=== PATIENT | female | born 1940 | race Caucasian/White ===

== ENCOUNTER → 2016-08-09 | Outpatient (CLI) | payer MEDICARE, BC ==
[~2016-08-09] MED LIST: AMIO200T PO; AMIT1TAB79 PO; AMIT25TA9 PO; ATEN1TAB74 PO; BENA25CA4 PO; BENA25TA3 PO; CHOL1CAP34 PO; COUM3TAB PO; DICY10 PO; DILAUDID; DILAUDID IT; EPIN0.3A2 IM; EPIP0.3I IM; ERGO1CAP10 PO; ESTR1.25 PO; ESTR42.5V VAGINAL; FAMO1TAB37 PO; FAMO40TA PO; FURO1TAB60 PO; FURO40TA PO; HYDR-3534 PO; HYDR15SO PO; IRBE150T49 PO; LEVO-154 PO; LEVO.15 PO; LIDO1SOL8 SWISH-SWAL; LOMO2.5T PO; MULT1TAB46 PO; MULT1TAB84 PO; NITR0.4S SL; PRAZ2 PO; PROC10003 SQ; SALM50I INH; TUSSSUS2 PO; TYLE325T PO; VENTAER INH; WARF4TAB52 PO; WELC625T2 PO; ZOFR8TAB PO; [UNRECOGNIZED DRUG - OTHER]
[2016-08-09 17:34] LABS: FREE T4 1.41 NG/DL (0.76-1.46)
== END ==
LOC: PLAB 11:23
PROVIDERS: ATTEND Internal Medicine Endocrinology, Diabetes & Metabolism
DX: E03.9 Hypothyroidism, unspecified (principal)
CPT/HCPCS: 36415; 84439; 84443

== ENCOUNTER → 2016-09-13 | Day surgery (SDC) | payer MEDICARE, BC ==
[~2016-09-13] MED LIST changes: +BUPIVACAINE HCL PF 0.5% 30 ML VIAL ONE; +PROPOFOL 200 MG/20 ML AMP IV ONE; +TRIAMCINOLONE ACETONIDE 40 MG/ML VIAL I-ARTICULR ONE
--- NOTE | 2016-09-17 07:51 | M6 ---
cc: CAESAR ERNANDEZ M.D. DATE: 09/13/2016 DATE OF : 1940 PROCEDURE Fluoroscopically guided injection bilateral cervical facet joints (bilateral C3-4, C4-5 and C5-6 facet joints) History and physical was completed and signed. Consent was signed. Procedure site was marked. Medications were listed and reconciled. Pain score was recorded. Allergies were noted. Time out was taken. Fluoroscopy time was recorded where applicable. Sedation was administered or directed by Dr. Ernandez. The patient was given oxygen. The patient was monitored by a registered nurse. Total procedure time was greater than 15 minutes. PROCEDURE NOTE: IV was started, blood pressure cuff, pulse oximeter and EKG were applied. The patient was placed in the prone position on a Chris table sedated with small amounts of propofol titrated to effect. Vital signs were monitored and remained stable throughout the procedure. The cervical area was prepped with alcohol and draped with sterile drapes. Fluoroscopy was used to visualize the bilateral cervical facet joints at C3-4, C4-5 and C5-6. Separate sterile 3-1/2 inch 25-gauge spinal needles were advanced into these joints under fluoroscopic guidance. There was negative aspiration for blood or any other type of fluid. At each location the patient was given 1 mL of 0.5% Marcaine which contained 10 mg of Kenalog. Following this the patient was taken to the recovery room with stable vital signs neurologically intact. W. MD MARIN Genao/RON /9:46 AM /7:49 AM
== END | disposition home or self-care (01) ==
LOC: PHSDC 07:57
PROVIDERS: ATTEND Pain Medicine Interventional Pain Medicine
DX: M54.2 Cervicalgia (principal); M48.02 Spinal stenosis, cervical region
CPT/HCPCS: 64490; 64491; 64492; 99152; J3301

== ENCOUNTER → 2016-09-22 | Day surgery (SDC) | payer MEDICARE, BC ==
[~2016-09-22] MED LIST changes: -BUPIVACAINE HCL PF 0.5% 30 ML VIAL ONE; +BUPIVACAINE HCL PF 0.75% 30 ML VIAL ONE
--- NOTE | 2016-09-23 14:42 | M6 ---
cc: CAESAR ERNANDEZ M.D. DATE: 09/22/2016. DATE OF : 1940. PROCEDURE PERFORMED: Fluoroscopically-guided injection bilateral thoracic facet joints (bilateral T4, T5 and T6 facet joints). DESCRIPTION OF THE PROCEDURE IN DETAIL: History and physical was completed and signed. Consent was signed. Procedure site was marked. Medications were listed and reconciled. Pain score was recorded. Allergies were noted. Time out was taken. Fluoroscopy time was recorded where applicable. Sedation was administered or directed by Dr. Ernandez. The patient was given oxygen. The patient was monitored by a registered nurse. Total procedure time was greater than 15 minutes. IV was started, blood pressure cuff, pulse oximeter and EKG were applied. The patient was placed in the prone position on a Chris table and sedated with small amounts of propofol titrated to effect. Vital signs were monitored and remained stable throughout the procedure. The thoracic area was prepped with alcohol and draped with sterile drapes. Fluoroscopy was used to visualize the bilateral thoracic facets at T4, T5 and T6. Separate sterile 3-1/2-inch 25-gauge spinal needles were advanced into these joints. There was negative aspiration for blood or any other type of fluid and at each location the patient was given 1 mL of Marcaine 0.75% which contained 10 mg of Kenalog. Following the procedure, the patient was taken to the recovery room with stable vital signs neurologically intact W. MD MARIN Genao/KAM /9:30 AM /2:37 PM
== END | disposition home or self-care (01) ==
LOC: PHSDC 08:28
PROVIDERS: ATTEND Pain Medicine Interventional Pain Medicine
DX: M54.6 Pain in thoracic spine (principal)
CPT/HCPCS: 64490; 64491; 64492; 99152; J3301

== ENCOUNTER 2016-10-01 15:30 | Emergency (ER) | payer MEDICARE, BC ==
[~2016-10-01] VITALS: Ht 160 cm; Wt 67.8 kg
[~2016-10-01 15:30] MED LIST changes: -AMIT25TA9 PO; -ATEN1TAB74 PO; -BENA25CA4 PO; -BUPIVACAINE HCL PF 0.75% 30 ML VIAL ONE; -CHOL1CAP34 PO; -DILAUDID; -DILAUDID IT; -EPIN0.3A2 IM; -FAMO40TA PO; -FURO40TA PO; -HYDR15SO PO; -LEVO-154 PO; -LIDO1SOL8 SWISH-SWAL; -MULT1TAB46 PO; -PROC10003 SQ; -PROPOFOL 200 MG/20 ML AMP IV ONE; -TRIAMCINOLONE ACETONIDE 40 MG/ML VIAL I-ARTICULR ONE; -TYLE325T PO; -WARF4TAB52 PO
[2016-10-01 15:34] VITALS: PULSE 67; RESP 16; TEMP 97.8; O2SAT 97
[2016-10-01] MEDS ORDERED: ALUMINUM/MAGNESIUM/SIMETH 30 ML CUP PO ONE (16:00)
[2016-10-01] MEDS ORDERED: LIDOCAINE VISCOUS 2% SOLN 15 ML UDC SWISH-SPIT ONE (16:00)
[2016-10-01] MEDS ORDERED: AMIT1TAB79 PO (16:05)
[2016-10-01] MEDS ORDERED: DILAUDID (16:05)
[2016-10-01] MEDS ORDERED: PROC10003 SQ (16:05)
[2016-10-01] MEDS ORDERED: DILAUDID IT (16:05)
--- NOTE | 2016-10-01 16:10 | PD ---
HPI Chief Complaint: Abdominal Pain Time Seen by Provider: 15:47 Travel History International Travel<30 days: No Contact w/Intl Traveler<30days: No Traveled to known affect area: No History of Present Illness HPI This 76-year-old female is complaining of abdominal pain. She started having pain yesterday. It stays pain in the mid to upper abdomen. It is worse when she stands or when she walks. When she stands the pain radiates to the back. She generally has a poor appetite. She has a history of ischemic colitis which was operated on by Dr. Wharton in 1999 and a. She has had a cholecystectomy in the past. She has a history of atrial fibrillation and is on Coumadin. She has a history of end-stage renal disease. She has a lot of back issues for which she sees Dr. Ernandez. She has a intrathecal Dilaudid pump. She generally does not have a good appetite. She has not noted that food makes this pain worse. 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 FIB) High Cholesterol: Yes Chemotherapy: No Chest Pain: Yes Congestive Heart Failure: Yes (INDUCED IN ACUTE CARE SETTING) COPD: Yes Cerebrovascular Accident: No Diabetes: No Diminished Hearing: No Deep Vein Thrombosis: Yes (PE) Endocrine: No Gastrointestinal Disorders: Yes (COLECTOMY; ISCHEMIC COLITIS;) GERD: Yes Glaucoma: No Genitourinary: Yes (BLADDER LEAKAGE) Hepatitis: No Hiatal Hernia: Yes Heparin Induced Thrombocytopen: No Hypertension: Yes Immune Disorder: No Implanted Vascular Access Dvce: Yes Medical other: No Musculoskeletal: Yes (OSTENPENIA LEFT HIP ) Neurologic: No Psychiatric: Yes (SITUATIONAL DEPRESSION ) Reproductive: No Respiratory: Yes (COPD, PULMONARY FIBROSIS) Migraines: Yes ("NOT FOR FEW YEARS" (08/06/13)) Myocardial Infarction: No Pneumonia: Yes Radiation Therapy: No Renal Failure: Yes (Chronic renal failure - pt not on dialysis ) Sickle Cell Disease: No Sleep Apnea: No Thyroid Disease: Yes Ulcer: No PNEUMOCCOCAL Vaccine (Year): 2010 ?: Not Menopausal: Yes : 8 Para: 3 Miscarriage: 5 : 0 Past Surgical History Abdominal Surgery: Yes (COLECTOMY; APPY AGE 14 ;DAVINCI ASST. ADENOMA) AICD: No Appendectomy: Yes Arteriovenous Shunt: No Body Medical Devices: BILATERAL RENTAL ARTERY STENTS Cardiac Surgery: No Cholecystectomy: Yes Ear Surgery: No Endocrine Surgery: No Eye Surgery: No Genitourinary Surgery: Yes (BLADDER SUSPENSION, LOLA. RENAL STENTS) Hysterectomy: Yes Insulin Pump: No Joint Replacement: No Neurologic Surgery: No Oral Surgery: Yes (TONSILLECTOMY AGE 3 ) Pacemaker: No Thoracic Surgery: No Tonsillectomy: Yes Other Surgery: Yes (2 VILLAGOMEZ'S NERUOMAS REMOVED FROM FEET, Intrathecal pain catheter in RUQ ) Social History Alcohol Use: No Tobacco Use: No (quit 2002 1ppd for 50 yrs) Substance Use: No Allergies-Medications (Allergen,Severity, Reaction): Coded Allergies: Betadine (Verified Allergy, Severe, blisters, 10/01/16) Chicken Meat (Verified Allergy, Severe, wheezes, 10/01/16) Chocolate (Verified Allergy, Severe, WHEEZING, 10/01/16) Contrast Media (Verified Allergy, Severe, anaphylactic, 10/01/16) Egg Allergy (Verified Allergy, Severe, RASH, 10/01/16) Erythromycin (Verified Allergy, Severe, ABDOMINAL PAIN, 10/01/16) Aydee Nut (Verified Allergy, Severe, nausea and vomiting All Nuts, 10/01/16 ) Iodine (Verified Allergy, Severe, BLISTERS, 10/01/16) Molds and Smuts (Verified Allergy, Severe, Anaphylaxis, 10/01/16) Penicillin (Verified Allergy, Severe, HIVES, 10/01/16) Restoril (Verified Allergy, Severe, Confusion, 10/01/16) Rocephin (Verified Allergy, Severe, "COLITIS", 10/01/16) Shrimp (Verified Allergy, Severe, ITCHING, 10/01/16) Wellbutrin (Verified Allergy, Intermediate, Itching, 10/01/16) Pletal (Verified Allergy, Mild, 10/01/16) ABDOMINAL PAIN AND ITCHING Ragweed (Verified Allergy, Unknown, RESPIRATORY DIFFICULTIES, 10/01/16) Demerol (Verified Adverse Reaction, Severe, VOMITTING, 10/01/16) Erythrocin (Verified Adverse Reaction, Severe, GI DISTRESS, 10/01/16) Molasses (Verified Adverse Reaction, Severe, HEADACHE, 10/01/16) Monosodium Glutamate (Verified Adverse Reaction, Severe, HEADACHE, 10/01/16 ) Multaq (Verified Adverse Reaction, Severe, Nausea/Vomiting, 10/01/16) Celebrex (Verified Adverse Reaction, Unknown, avoid due to renal failure, 10/01/16) Ibuprofen (Verified Adverse Reaction, Unknown, avoid due to renal failure , 10/01/16) Uncoded Allergies: INTRATHECAL MORPHINE (Allergy, Unknown, Itching AND RASH, 03/13/16) Reported Meds & Prescriptions Reported Meds & Active Scripts Active Lidocaine Viscous Liq 2 % Liqd 5 Ml SWISH-SWAL DIRECTED PRN Reported Procrit Inj (Epoetin Kenny) 10,000 Unit/Ml Inj 10,000 Units SQ 3XWEEK [Dilaudid ] 0.25 Mg IT DAILY Elavil (Amitriptyline HCl) 25 Mg Tab 25 Mg PO DAILY Multivitamin Adults (Multiple Vitamins W/ Minerals) 1 Tab 1 Tab PO DAILY Benadryl Allergy (Diphenhydramine HCl) 25 Mg Tab 50 Mg PO HS Pepcid (Famotidine) 20 Mg Tab 20 Mg PO DAILY Minipress (Prazosin HCl) 2 Mg Cap 2-5 Mg PO DIRECTED AM & PM Coumadin (Warfarin) 3 Mg Tab 3 Mg PO DAILY Vitamin D (Ergocalciferol) 50,000 Unit Cap 50,000 Units PO Q14D ONCE, EVERY OTHER WEEK Synthroid (Levothyroxine Sodium) 150 Mcg Tab 175 Mcg PO DAILY Amiodarone (Amiodarone HCl) 200 Mg Tab 200 Mg PO HS Welchol (Colesevelam HCl) 625 Mg Tab 625 Mg PO HS Premarin (Estrogens Conjugated) 1.25 Mg Tab 1.25 Mg PO HS Lasix (Furosemide) 40 Mg Tab 40 Mg PO HS MWF Lasix (Furosemide) 40 Mg Tab 40 Mg PO DAILY Avapro (Irbesartan) 150 Mg Tab 150 Mg PO HS Review of Systems General / Constitutional: No: Fever, Chills Eyes: No: Diploplia HENT: No: Headaches Cardiovascular: No: Chest Pain or Discomfort, Palpitations Respiratory: No: Cough, Shortness of Breath Gastrointestinal: Positive: Abdominal Pain, No: Nausea, Vomiting, Diarrhea Genitourinary: No: Frequency, Dysuria Musculoskeletal: No: Myalgias Skin: No Itching, No Dryness Hematologic/Lymphatic: No: Easy Bruising Physical Exam Narrative GENERAL: Well-developed female SKIN: Focused skin assessment warm/dry. HEAD: Atraumatic. Normocephalic. EYES: Pupils equal and round. No scleral icterus. No injection or drainage. ENT: No nasal bleeding or discharge. Mucous membranes pink and moist. NECK: Trachea midline. No JVD. CARDIOVASCULAR: Regular rate and rhythm. No murmur appreciated. RESPIRATORY: No accessory muscle use. Clear to auscultation. Breath sounds equal bilaterally. GASTROINTESTINAL: Abdomen soft, there is some mid abdominal tenderness, nondistended. Hepatic and splenic margins not palpable. Pain pump is palpable in the right midabdomen. I don't feel any other masses MUSCULOSKELETAL: No obvious deformities. No clubbing. No cyanosis. No edema. NEUROLOGICAL: Awake and alert. No obvious cranial nerve deficits. Motor grossly within normal limits. Normal speech. PSYCHIATRIC: Appropriate mood and affect; insight and judgment normal. Data Data Last Documented VS Vital Signs Date Time Temp Pulse Resp B/P Pulse Ox O2 Delivery O2 Flow Rate FiO2 10/01/16 17:15 62 18 170/69 98 Room Air 10/01/16 15:34 97.8 Orders Urinalysis - C+S If Indicated (10/01/16 15:33) Complete Blood Count With Diff (10/01/16 16:00) Comprehensive Metabolic Panel (10/01/16 16:00) Prothrombin Time / Inr (Pt) (10/01/16 16:00) Act Partial Throm Time (Ptt) (10/01/16 16:00) Lipase (10/01/16 16:00) Al-Mag Hy-Si 40-40-4 Mg/Ml Liq (Mag-Al P (10/01/16 16:00) Lidocaine 2% Viscous (Xylocaine 2% Visco (10/01/16 16:00) Ct Abd/Pel W/O Iv Contrast (10/01/16 16:13) Sodium Chlor 0.9% 1000 Ml Inj (Ns 1000 M (10/01/16 16:30) Labs Laboratory Tests Test 10/01/16 16:18 White Blood Count 9.5 TH/MM3 Red Blood Count 3.90 MIL/MM3 Hemoglobin 10.5 GM/DL Hematocrit 33.5 % Mean Corpuscular Volume 86.0 FL Mean Corpuscular Hemoglobin 26.9 PG Mean Corpuscular Hemoglobin 31.3 % Concent Red Cell Distribution Width 16.9 % Platelet Count 170 TH/MM3 Mean Platelet Volume 8.3 FL Neutrophils (%) (Auto) 82.0 % Lymphocytes (%) (Auto) 9.7 % Monocytes (%) (Auto) 6.9 % Eosinophils (%) (Auto) 1.0 % Basophils (%) (Auto) 0.4 % Neutrophils # (Auto) 7.8 TH/MM3 Lymphocytes # (Auto) 0.9 TH/MM3 Monocytes # (Auto) 0.7 TH/MM3 Eosinophils # (Auto) 0.1 TH/MM3 Basophils # (Auto) 0.0 TH/MM3 CBC Comment DIFF FINAL Differential Comment Prothrombin Time 47.0 SEC Prothromb Time International 4.0 RATIO Ratio Activated Partial 34.1 SEC Thromboplast Time Sodium Level 134 MEQ/L Potassium Level 5.1 MEQ/L Chloride Level 104 MEQ/L Carbon Dioxide Level 20.2 MEQ/L Anion Gap 10 MEQ/L Blood Urea Nitrogen 82 MG/DL Creatinine 3.80 MG/DL Estimat Glomerular Filtration 11 ML/MIN Rate Random Glucose 122 MG/DL Calcium Level 7.8 MG/DL Total Bilirubin 0.2 MG/DL Aspartate Amino Transf 19 U/L (AST/SGOT) Alanine Aminotransferase 27 U/L (ALT/SGPT) Alkaline Phosphatase 62 U/L Total Protein 6.8 GM/DL Albumin 2.7 GM/DL Lipase 280 U/L MDM Medical Decision Making Medical Screen Exam Complete: Yes Emergency Medical Condition: Yes Medical Record Reviewed: Yes Differential Diagnosis Differential includes pancreatitis, gastritis, colitis, Narrative Course Patient was given a GI cocktail with Mylanta and lidocaine and had prolonged relief of her pain. Lab work shows evidence of renal insufficiency which has been present in the past. CBC is unchanged from previous values. A CT of the abdomen and pelvis was obtained and does not show a cause for the abdominal pain. Patient was reevaluated and continues to be pain-free. She wishes to be released and she'll follow-up with Dr. Castillo who is her GI doctor. I will prescribe some viscous lidocaine for her to use sparingly at home as it did have an excellent response Diagnosis Primary Impression: Nonspecific abdominal pain Scripts Lidocaine Viscous Liq 2 % Liqd5 Ml SWISH-SWAL DIRECTED PRN (PAIN) #1 BOTTLE Ref 1 Prov:Ricardo Ramirez MD 10/01/16 Disposition: 01 DISCHARGE HOME Condition: Stable Ricardo Ramirez MD October 01, 2016 16:09
[2016-10-01 16:23] LABS: AUTOMATED NEUTROPHIL # 7.8 TH/MM3 (1.8-7.7); BASOPHIL % 0.4 % (0.0-2.0); EOSINOPHIL # 0.1 TH/MM3 (0-0.4); HEMATOCRIT 33.5 % (35.0-46.0); HEMO FLAGS DIFF FINAL; LYMPH % 9.7 % (9.0-44.0); LYMPHOCYTE # 0.9 TH/MM3 (1.0-4.8); MEAN CORPUSCULAR HEMOGLOBIN 26.9 PG (27.0-34.0); MEAN CORPUSCULAR HGB CONC 31.3 % (32.0-36.0); MONO % 6.9 % (0.0-8.0); PLATELET COUNT 170 TH/MM3 (150-450); RED CELL DISTRIBUTION WIDTH 16.9 % (11.6-17.2); WHITE BLOOD COUNT 9.5 TH/MM3 (4.0-11.0)
[2016-10-01] MEDS ORDERED: SODIUM CHLOR 0.9% 1000 ML INJ 1,000 ML IV SCH (16:30)
[2016-10-01 16:32] LABS: CHLORIDE 104 MEQ/L (98-107); POTASSIUM 5.1 MEQ/L (3.5-5.1); SODIUM (NA) 134 MEQ/L (136-145)
[2016-10-01 16:36] LABS: ANION GAP 10 MEQ/L (5-15); BICARBONATE 20.2 MEQ/L (21.0-32.0); BLOOD UREA NITROGEN 82 MG/DL (7-18)
[2016-10-01 16:38] LABS: APTT (PATIENT) 34.1 SEC (24.3-30.1)
[2016-10-01 16:39] LABS: ALT (GPT) 27 U/L (10-53); AST (GOT) 19 U/L (15-37); GLOMERULAR FILTRATION RATE 11 ML/MIN (>89)
[2016-10-01 16:40] LABS: TOTAL BILIRUBIN ADULT 0.2 MG/DL (0.2-1.0)
[2016-10-01 16:42] LABS: ALKALINE PHOSPHATASE 62 U/L (45-117)
--- NOTE | 2016-10-01 16:48 | RADHPO ---
EXAM DATE/TIME: 10/01/2016 16:27 [facility] COMPARISON: CT ABDOMEN & PELVIS W/O CONTRAST, March 01, 2016, 13:32. INDICATIONS : Mid upper abdomen pain since yesterday. ORAL CONTRAST: No oral contrast ingested. RADIATION DOSE: 10.45 CTDIvol (mGy) MEDICAL HISTORY : Hypertension. Chronic obstructive pulmonary disease. Deep venous thrombosis. SURGICAL HISTORY : Appendectomy. Cholecystectomy.Colectomy. Pain pump. ENCOUNTER: Initial ACUITY: 2 days PAIN SCALE: 5/10 LOCATION: upper quadrant TECHNIQUE: Volumetric scanning of the abdomen and pelvis was performed. Using automated exposure control and ad justment of the mA and/or kV according to patient size, radiation dose was kept as low as reasonably achievable to obtain optimal diagnostic quality images. FINDINGS: Granuloma is present in the left lung base. There is no pericardial effusion The liver, spleen, pancreas and adrenals are unremarkable. Marked artifact is present from the impla nted pump. Kidneys are small without stones. Moderate vascular calcifications are noted. There is no ascites or adenopathy Pelvic contents are grossly unremarkable Epidural catheter to pain pump is noted. Degenerative changes are present in the lumbar spine. CONCLUSION: 1. Epidural pain pump . 2. Negative for acute process. Michael Pinto MD FACR on October 01, 2016 at 16:43 Board Certified Radiologist. This report was verified electronically.
[2016-10-01 17:15] VITALS: BP 170/69; PULSE 62; RESP 18; O2SAT 98
[2016-10-01] MEDS ORDERED: LIDO1SOL8 SWISH-SWAL (17:27)
[2016-10-12] MEDS ORDERED: LEVO-154 PO (15:35)
[2016-10-12] MEDS ORDERED: WARF4TAB52 PO (15:35)
[2016-10-12] MEDS ORDERED: FURO40TA PO ×2 (15:35)
[2016-10-12] MEDS ORDERED: HYDR15SO PO (15:36)
[2016-10-12] MEDS ORDERED: ZOFR8TAB PO (15:36)
[2016-10-12] MEDS ORDERED: NITR0.4S SL (15:36)
[2016-10-12] MEDS ORDERED: EPIN0.3A2 IM (15:36)
[2016-10-12] MEDS ORDERED: MULT1TAB46 PO (15:36)
[2016-10-12] MEDS ORDERED: BENA25CA4 PO (15:36)
[2016-10-12] MEDS ORDERED: VENTAER INH (15:36)
[2016-10-12] MEDS ORDERED: HYDR-3534 PO (15:36)
[2016-10-12] MEDS ORDERED: AMIT25TA9 PO (15:36)
[2016-10-12] MEDS ORDERED: LOMO2.5T PO (15:36)
[2016-10-12] MEDS ORDERED: CHOL1CAP34 PO (15:36)
[2016-10-12] MEDS ORDERED: DICY10 PO (15:36)
[2016-10-12] MEDS ORDERED: TYLE325T PO (15:36)
[2016-10-12] MEDS ORDERED: FAMO40TA PO (15:36)
[2016-11-14] MEDS ORDERED: ATEN1TAB74 PO (09:54)
== END 2016-10-01 17:49 | disposition home or self-care (01) ==
LOC: PHED 15:30
DX: R10.9 Unspecified abdominal pain (principal); N28.9 Disorder of kidney and ureter, unspecified; I10 Essential (primary) hypertension; E07.9 Disorder of thyroid, unspecified; E78.00 Pure hypercholesterolemia, unspecified; Z79.01 Long term (current) use of anticoagulants; Z87.19 Personal history of other diseases of the digestive system; Z86.79 Personal history of other diseases of the circulatory system; Z87.39 Personal history of other diseases of the musculoskeletal system and connective tissue; Z87.09 Personal history of other diseases of the respiratory system; Z87.448 Personal history of other diseases of urinary system; Z87.891 Personal history of nicotine dependence
CPT/HCPCS: 74176; 80053; 83690; 85025; 85610; 85730; 99284; J7030

== ENCOUNTER → 2016-10-05 | Outpatient (CLI) | payer MEDICARE, BC ==
[~2016-10-05] MED LIST changes: +AMIT25TA9 PO; +ATEN1TAB74 PO; +BENA25CA4 PO; +CHOL1CAP34 PO; +DILAUDID; +DILAUDID IT; +EPIN0.3A2 IM; +FAMO40TA PO; +FURO40TA PO; +HYDR15SO PO; +LEVO-154 PO; +LIDO1SOL8 SWISH-SWAL; +MULT1TAB46 PO; +PROC10003 SQ; +TYLE325T PO; +WARF4TAB52 PO
[2016-10-05 13:08] LABS: BACTERIA, URINE RARE /hpf; BLOOD, URINE NEG (NEG); GLUCOSE,URINE NEG (NEG); KETONE, URINE NEG (NEG); NITRITE,URINE NEG (NEG); SQUAMOUS EPITHELIAL CELL URINE 1 /hpf (0-5); URINE COLOR YELLOW (YELLW/STRAW)
== END ==
LOC: PLAB 11:01
PROVIDERS: ATTEND Internal Medicine Nephrology
DX: E78.5 Hyperlipidemia, unspecified (principal); N39.0 Urinary tract infection, site not specified; I12.0 Hypertensive chronic kidney disease with stage 5 chronic kidney disease or end stage renal disease; N18.5 Chronic kidney disease, stage 5; D63.1 Anemia in chronic kidney disease
CPT/HCPCS: 81001; 87086

== ENCOUNTER → 2016-11-14 | Day surgery (SDC) | payer OTHER ==
[~2016-11-14] MED LIST changes: -AMIT1TAB79 PO; -BENA25TA3 PO; +BUPIVACAINE HCL PF 0.5% 30 ML VIAL ONE; -COUM3TAB PO; -DILAUDID; -EPIP0.3I IM; -ERGO1CAP10 PO; -ESTR42.5V VAGINAL; -FAMO1TAB37 PO; -FURO1TAB60 PO; -LEVO.15 PO; -MULT1TAB84 PO; +PROPOFOL 200 MG/20 ML AMP IV ONE; -SALM50I INH; +TRIAMCINOLONE ACETONIDE 40 MG/ML VIAL I-ARTICULR ONE; -TUSSSUS2 PO; -[UNRECOGNIZED DRUG - OTHER]
--- NOTE | 2016-11-17 16:08 | M6 ---
cc: CAESAR ERNANDEZ M.D. DATE: 11/14/2016. DATE OF : 1940 PROCEDURE PERFORMED: Fluoroscopically guided injection bilateral thoracic facet joints (bilateral T10, T11 and T12 facet joints). DESCRIPTION OF THE PROCEDURE IN DETAIL: History and physical was completed and signed. Consent was signed. Procedure site was marked. Medications were listed and reconciled. Pain score was recorded. Allergies were noted. Time out was taken. Fluoroscopy time was recorded where applicable. Sedation was administered or directed by Dr. Ernandez. The patient was given oxygen. The patient was monitored by a registered nurse. Total procedure time was greater than 15 minutes. IV was started, blood pressure cuff, pulse oximeter and EKG were applied. The patient was placed in the prone position on a Chris table and sedated with small amounts of propofol titrated to effect. Vital signs were monitored and remained stable throughout the procedure. The lumbar area was prepped with alcohol and 10% Betadine solution and draped with sterile drapes. Fluoroscopy was used to visualize the bilateral thoracic facet joints at T10, T11 and T12. Separate sterile 3-1/2-inch 25-gauge spinal needles were advanced into the joints under fluoroscopic guidance. There was negative aspiration for blood or any other type of fluid and at each location the patient was given 1 mL of Marcaine 0.5% which contained 10 mg of Kenalog. Following the procedure, the patient was taken to the recovery room with stable vital signs neurologically intact. W. MD MARIN Genao/KMA /10:45 AM /4:09 PM
== END | disposition home or self-care (01) ==
LOC: PHSDC 09:14
PROVIDERS: ATTEND Pain Medicine Interventional Pain Medicine
DX: M54.9 Dorsalgia, unspecified (principal); R10.9 Unspecified abdominal pain; I11.0 Hypertensive heart disease with heart failure; I50.9 Heart failure, unspecified; I48.91 Unspecified atrial fibrillation; I25.10 Atherosclerotic heart disease of native coronary artery without angina pectoris
CPT/HCPCS: 64490; 64491; 64492; 99152; J3301; 64480

== ENCOUNTER 2016-12-30 19:30 | Emergency (ER) | payer MEDICARE, BC ==
[~2016-12-30 19:30] MED LIST changes: -BUPIVACAINE HCL PF 0.5% 30 ML VIAL ONE; -HYDR15SO PO; +LEVS0.124 SL; -LIDO1SOL8 SWISH-SWAL; -PROPOFOL 200 MG/20 ML AMP IV ONE; -TRIAMCINOLONE ACETONIDE 40 MG/ML VIAL I-ARTICULR ONE
[2016-12-30 19:36] VITALS: BP 134/59; PULSE 74; RESP 18; TEMP 98.1; O2SAT 97
--- NOTE | 2016-12-30 20:59 | PD ---
HPI Chief Complaint: Skin Problem Time Seen by Provider: 20:46 Travel History International Travel<30 days: No Contact w/Intl Traveler<30days: No Traveled to known affect area: No History of Present Illness HPI The patient is a 76-year-old female that has traumatized her left lower leg multiple times and has had swelling since October or November in that left lower leg. She is on Coumadin because of atrial fibrillation. She was treated recently by Dr. Goins, her primary care physician, for cellulitis of that leg. Today, while her daughter was moving her, her daughter accidentally punctured her leg with her thumbnail and it started draining clear fluid. There is been no fever or erythema. 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,BILAT HANDS)) Cardiovascular Problems: Yes High Cholesterol: Yes Chemotherapy: No Chest Pain: Yes Congestive Heart Failure: Yes COPD: Yes Cerebrovascular Accident: No Diabetes: No Diminished Hearing: No Deep Vein Thrombosis: Yes (PE) Endocrine: No Gastrointestinal Disorders: Yes (COLECTOMY; ISCHEMIC COLITIS;) GERD: Yes Glaucoma: No Genitourinary: No Hepatitis: No Hiatal Hernia: Yes Heparin Induced Thrombocytopen: No Hypertension: Yes Immune Disorder: No Implanted Vascular Access Dvce: Yes Musculoskeletal: Yes (OSTENPENIA LEFT HIP ) Neurologic: No Psychiatric: Yes (SITUATIONAL DEPRESSION ) Reproductive: Yes Respiratory: No Migraines: Yes ("NOT FOR FEW YEARS" (08/06/13)) Myocardial Infarction: No Pneumonia: Yes Radiation Therapy: No Renal Failure: Yes (Chronic renal failure - pt not on dialysis ) Sickle Cell Disease: No Sleep Apnea: No Thyroid Disease: Yes Ulcer: No PNEUMOCCOCAL Vaccine (Year): 2010 Menopausal: Yes : 8 Para: 3 Miscarriage: 5 : 0 Past Surgical History Abdominal Surgery: Yes (GALL BLADDER, APPENDIX, COLECTOMY) AICD: No Appendectomy: Yes Arteriovenous Shunt: No Body Medical Devices: BILATERAL RENTAL ARTERY STENTS Cardiac Surgery: No Cholecystectomy: Yes Ear Surgery: No Endocrine Surgery: No Eye Surgery: No Genitourinary Surgery: Yes (BLADDER SUSPENSION, LOLA. RENAL STENTS) Gynecologic Surgery: Yes (HYSTERECTOMY) Hysterectomy: Yes Insulin Pump: No Joint Replacement: No Neurologic Surgery: No Oral Surgery: Yes (TONSILLECTOMY AGE 3 ) Pacemaker: No Thoracic Surgery: No Tonsillectomy: Yes Other Surgery: Yes (2 VILLAGOMEZ'S NERUOMAS REMOVED FROM FEET, Intrathecal pain catheter in RUQ ) Social History Alcohol Use: No Tobacco Use: No (quit 2002 1ppd for 50 yrs) Substance Use: No Allergies-Medications (Allergen,Severity, Reaction): Coded Allergies: Betadine (Verified Allergy, Severe, blisters, 12/30/16) Chicken Meat (Verified Allergy, Severe, wheezes, 12/30/16) Chocolate (Verified Allergy, Severe, WHEEZING, 12/30/16) Contrast Media (Verified Allergy, Severe, anaphylactic, 12/30/16) Egg Allergy (Verified Allergy, Severe, RASH, 12/30/16) Erythromycin (Verified Allergy, Severe, ABDOMINAL PAIN, 12/30/16) Aydee Nut (Verified Allergy, Severe, nausea and vomiting All Nuts, 12/30/16 ) Iodine (Verified Allergy, Severe, BLISTERS, 12/30/16) Molds and Smuts (Verified Allergy, Severe, Anaphylaxis, 12/30/16) Morphine (Verified Allergy, Severe, RASH, 12/30/16) Penicillin (Verified Allergy, Severe, HIVES, 12/30/16) Restoril (Verified Allergy, Severe, Confusion, 12/30/16) Rocephin (Verified Allergy, Severe, "COLITIS", 12/30/16) Shrimp (Verified Allergy, Severe, ITCHING, 12/30/16) Wellbutrin (Verified Allergy, Intermediate, Itching, 12/30/16) Pletal (Verified Allergy, Mild, 12/30/16) ABDOMINAL PAIN AND ITCHING Ragweed (Verified Allergy, Unknown, RESPIRATORY DIFFICULTIES, 12/30/16) Demerol (Verified Adverse Reaction, Severe, VOMITTING, 12/30/16) Erythrocin (Verified Adverse Reaction, Severe, GI DISTRESS, 12/30/16) Molasses (Verified Adverse Reaction, Severe, HEADACHE, 12/30/16) Monosodium Glutamate (Verified Adverse Reaction, Severe, HEADACHE, 12/30/16 ) Multaq (Verified Adverse Reaction, Severe, Nausea/Vomiting, 12/30/16) Celebrex (Verified Adverse Reaction, Unknown, avoid due to renal failure, 12/30/16) Ibuprofen (Verified Adverse Reaction, Unknown, avoid due to renal failure , 12/30/16) Uncoded Allergies: INTRATHECAL MORPHINE (Allergy, Unknown, Itching AND RASH, 03/13/16) Reported Meds & Prescriptions Reported Meds & Active Scripts Active Reported Procrit Inj (Epoetin Kenny) 10,000 Unit/Ml Inj 10,000 Units SQ [id number] Welchol (Colesevelam HCl) 625 Mg Tab 1,875 Mg PO BID Levsin-SL (Hyoscyamine Sulfate) 0.125 Mg Subl 0.125 Mg SL Q4H PRN Tenormin (Atenolol) 50 Mg Tab 50 Mg PO DAILY Tylenol (Acetaminophen) 325 Mg Tab 325 Mg PO Q6H PRN Lomotil (Diphenoxylate-Atropine) 2.5-0.025 Mg Tab 1 Tab PO Q6H PRN Zofran (Ondansetron HCl) 8 Mg Tab 8 Mg PO TID PRN Bentyl (Dicyclomine HCl) 10 Mg Cap 10 Mg PO QID Multi Vitamin Daily (Multiple Vitamin) 1 Tab Tab 1 Tab PO DAILY Epipen (Epinephrine) 0.3 Mg/0.3 Ml Auto.injct 0.3 Mg IM PRN Nitrostat SL (Nitroglycerin) 0.4 Mg Subl 0.4 Mg SL DIRECTED PRN 1 tablet under the tongue as needed for chest pain. Repeat every 5 minutes for a total of 3 DOSES or call 911 if NO relief. Ventolin Hfa 18 GM Inh (Albuterol Sulfate) 90 Mcg/Act Aer 1 Puff INH Q4H PRN Lortab (Hydrocodone-Acetaminophen) 7.5-325 Mg Tab 1 Tab PO Q4H PRN Benadryl Allergy (Diphenhydramine HCl) 25 Mg Cap 50 Mg PO HS Famotidine 40 Mg Tab 40 Mg PO BID Vitamin D3 (Cholecalciferol) 50,000 Unit Cap 50,000 Units PO [id number] Amitriptyline (Amitriptyline HCl) 25 Mg Tab 25 Mg PO HS Furosemide 40 Mg Tab 40 Mg PO DAILY Warfarin 1 Mg Tab 1.5 Mg PO DAILY Levothyroxine (Levothyroxine Sodium) 175 Mcg Tab 175 Mcg PO DAILY [Dilaudid ] 0.25 Mg IT DAILY Minipress (Prazosin HCl) 2 Mg Cap 2-5 Mg PO DIRECTED AM & PM Amiodarone (Amiodarone HCl) 200 Mg Tab 200 Mg PO HS Welchol (Colesevelam HCl) 625 Mg Tab 2 Tab PO HS Premarin (Estrogens Conjugated) 1.25 Mg Tab 1.25 Mg PO HS Avapro (Irbesartan) 150 Mg Tab 150 Mg PO HS Review of Systems Except as stated in HPI: all other systems reviewed are Neg Physical Exam Narrative GENERAL: Well-nourished, alert and oriented, well-developed patient in minimal apparent distress with her left leg discomfort. Her vital signs are normal. SKIN: Focused skin assessment warm/dry. HEAD: Normocephalic. EYES: No scleral icterus. No injection or drainage. NECK: Supple, trachea midline. No JVD or lymphadenopathy. CARDIOVASCULAR: Regular rate and rhythm without murmurs, gallops, or rubs. RESPIRATORY: Breath sounds equal bilaterally. No accessory muscle use. GASTROINTESTINAL: Abdomen soft, non-tender, nondistended. MUSCULOSKELETAL: No cyanosis, there is 2+ left lower leg edema. The wound has been draining while the patient was upright or sitting. It is not showing any drainage at this time while the leg is in neutral position. The drainage was only at the nail puncture point which is 1/2 cm in length. The skin is extremely thin. No erythema is noted. BACK: Nontender without obvious deformity. No CVA tenderness. Data Data Last Documented VS Vital Signs Date Time Temp Pulse Resp B/P Pulse Ox O2 Delivery O2 Flow Rate FiO2 12/30/16 21:01 74 20 12/30/16 19:36 98.1 134/59 97 MDM Medical Decision Making Medical Screen Exam Complete: Yes Emergency Medical Condition: Yes Medical Record Reviewed: Yes Differential Diagnosis Chronic edema left lower extremity, cellulitis left lower extremity, edematous drainage from left lower extremity Narrative Course The patient has chronic edema left lower extremity. Because of the puncture wound she now has clear drainage from the edematous leg. This drainage stops when the patient is in neutral position. She will be told to elevate the leg above her heart which should help the edema and should stop the drainage. Diagnosis Primary Impression: Edema of left lower extremity Additional Instructions: As we discussed, elevate the left lower extremity above your heart, this should stop drainage. We are also putting on a compressive bandage. Follow-up Dr. Goins next week. Med/Other Pt SpecificInfo: No Change to Meds Disposition: 01 DISCHARGE HOME Condition: Stable Chris Salomon MD Dec 30, 2016 20:59
[2016-12-30] MEDS ORDERED: WARF-58 PO (21:29)
[2017-01-04] MEDS ORDERED: PROC10003 SQ (15:10)
== END 2016-12-30 21:45 | disposition home or self-care (01) ==
LOC: PHED 19:30
DX: R60.0 Localized edema (principal); I48.91 Unspecified atrial fibrillation; I50.9 Heart failure, unspecified; Z79.01 Long term (current) use of anticoagulants
CPT/HCPCS: 99282

== ENCOUNTER → 2017-03-01 | Day surgery (SDC) | payer MEDICARE, BC ==
[~2017-03-01] MED LIST changes: -ATEN1TAB74 PO; +BUPIVACAINE HCL PF 0.5% 30 ML VIAL ONE; +CYANOCOBALAMIN 1000 MCG/ML VIAL ONE; +PROPOFOL 200 MG/20 ML AMP IV ONE; +TRIAMCINOLONE ACETONIDE 40 MG/ML VIAL I-ARTICULR ONE; +WARF-58 PO; +methylPREDNISolone ACETATE 40 MG/ML VIAL I-ARTICULR ONE
--- NOTE | 2017-03-01 12:15 | M6 ---
cc: CAESAR ERNANDEZ M.D. DATE: 03/01/2017 1938 PROCEDURE Fluoroscopically guided right hip joint injection. History and physical was completed and signed. Consent was signed. Procedure site was marked. Medications were listed and reconciled. Pain score was recorded. Allergies were noted. Time out was taken. Fluoroscopy time was recorded where applicable. Sedation was administered or directed by Dr. Ernandez. The patient was given oxygen. The patient was monitored by a registered nurse. Total procedure time was greater than 15 minutes. IV was started, blood pressure cuff, pulse oximeter and EKG were applied. The patient was placed in the supine position on a Chris table, sedated with small amounts of propofol titrated to effect. Vital signs were monitored and remained stable throughout the procedure. The right hip area was prepped with alcohol and draped with sterile drapes. Betadine was not used since she is ALLERGIC TO BETADINE. A 3-1/2 inch, 22-gauge spinal needle was advanced using fluoroscopic guidance into the cephalad portion of the acetabulum. There was negative aspiration for blood or any other type of fluid and the patient was given 3 mL of 0.5% Marcaine, 20 mg of Depo-Medrol, 20 mg of Kenalog. Following the procedure the patient was taken to the recovery room with stable vital signs, neurologically intact. She will be evaluated immediately and with followup to determine if she has a subjective decrease in her usual pain and a corresponding objective increase in her functional capabilities. WMD MARIN Juarez/MALIKA /11:47 AM /12:05 PM
== END | disposition home or self-care (01) ==
LOC: PHSDC 09:14
PROVIDERS: ATTEND Pain Medicine Interventional Pain Medicine
DX: M25.551 Pain in right hip (principal)
CPT/HCPCS: 20610; 99152; J1030; J3301; J3420

== ENCOUNTER → 2017-03-29 | Outpatient (CLI) | payer MEDICARE, BC ==
[~2017-03-29] MED LIST changes: -BUPIVACAINE HCL PF 0.5% 30 ML VIAL ONE; +COLE625 PO; -CYANOCOBALAMIN 1000 MCG/ML VIAL ONE; -DILAUDID IT; -PROPOFOL 200 MG/20 ML AMP IV ONE; -TRIAMCINOLONE ACETONIDE 40 MG/ML VIAL I-ARTICULR ONE; -WELC625T2 PO; -methylPREDNISolone ACETATE 40 MG/ML VIAL I-ARTICULR ONE
[2017-03-29 13:46] LABS: ANION GAP 8 MEQ/L (5-15); AST (GOT) 17 U/L (15-37); BICARBONATE 25.3 MEQ/L (21.0-32.0); BLOOD UREA NITROGEN 50 MG/DL (7-18); CHLORIDE 105 MEQ/L (98-107); GLOMERULAR FILTRATION RATE 13 ML/MIN (>89); GLUCOSE,FASTING 99 MG/DL (74-99); POTASSIUM 4.3 MEQ/L (3.5-5.1); SODIUM (NA) 138 MEQ/L (136-145)
[2017-03-29 13:56] LABS: ALKALINE PHOSPHATASE 102 U/L (45-117); ALT (GPT) 21 U/L (10-53); FREE T4 1.45 NG/DL (0.76-1.46); TOTAL BILIRUBIN ADULT 0.2 MG/DL (0.2-1.0)
== END ==
LOC: PLAB 10:59
PROVIDERS: ATTEND Internal Medicine Endocrinology, Diabetes & Metabolism
DX: E03.9 Hypothyroidism, unspecified (principal); E55.9 Vitamin D deficiency, unspecified; I10 Essential (primary) hypertension
CPT/HCPCS: 36415; 80053; 82306; 84439; 84443

== ENCOUNTER 2017-05-07 18:07 | Emergency (ER) | payer MEDICARE, BC ==
[~2017-05-07] VITALS: Ht 162.6 cm; Wt 71.0 kg
[2017-05-07 18:31] VITALS: BP 188/75; PULSE 85; RESP 16; TEMP 97.8; O2SAT 97
[2017-05-07] MEDS ORDERED: HYDR1SOL6 PO (20:29)
[2017-05-07] MEDS ORDERED: LIDOCAINE 2% JELLY 30 ML TUBE TOPICAL ONE (20:45)
--- NOTE | 2017-05-07 21:02 | PD ---
HPI Chief Complaint: Fall Time Seen by Provider: 20:23 Travel History International Travel<30 days: No Contact w/Intl Traveler<30days: No Traveled to known affect area: No History of Present Illness HPI 76-year-old female presents to the ED for evaluation of skin tears to left arm after fall at home. Patient states that she lost her balance while she was putting away teacups and fell to the tile floor. She denies hitting her head or loss of consciousness. On presentation she complains of bleeding from the left arm. She denies headache, dizziness, joint pain, nausea, vomiting. Has been ambulatory since the accident. She states that she's had her tetanus immunization in the last couple years. Daughter is at bedside and confirms this account. Patient is on Coumadin. 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,BILAT HANDS)) Cardiac Catheterization: No Cardiovascular Problems: Yes High Cholesterol: Yes Chemotherapy: No Chest Pain: Yes Congestive Heart Failure: Yes COPD: Yes Cerebrovascular Accident: No Diabetes: No Diminished Hearing: Yes Deep Vein Thrombosis: Yes (PE) Endocrine: No Gastrointestinal Disorders: Yes (COLECTOMY; ISCHEMIC COLITIS;) GERD: Yes Glaucoma: No Genitourinary: No Hepatitis: No Hiatal Hernia: Yes Heparin Induced Thrombocytopen: No Hypertension: Yes Immune Disorder: No Implanted Vascular Access Dvce: Yes Kidney Stones: Yes Musculoskeletal: Yes (OSTENPENIA LEFT HIP ) Neurologic: No Psychiatric: Yes (SITUATIONAL DEPRESSION ) Reproductive: Yes Respiratory: No Immunizations Current: Yes Migraines: Yes ("NOT FOR FEW YEARS" (08/06/13)) Myocardial Infarction: No Pneumonia: Yes Radiation Therapy: No Renal Failure: Yes (Chronic renal failure - pt not on dialysis ) Sickle Cell Disease: No Sleep Apnea: No Thyroid Disease: Yes Ulcer: No Influenza Vaccination: Yes PNEUMOCCOCAL Vaccine (Year): 2010 ?: Not Menopausal: Yes : 8 Para: 3 Miscarriage: 5 : 0 Ovarian Cysts: Yes Past Surgical History Abdominal Aneurysm Repair: No Abdominal Surgery: Yes (GALL BLADDER, APPENDIX, COLECTOMY) AICD: No Appendectomy: Yes Arteriovenous Shunt: No Body Medical Devices: BILATERAL RENTAL ARTERY STENTS Cardiac Surgery: No Cholecystectomy: Yes Coronary Artery Bypass Graft: No Coronary Stent: No Ear Surgery: No Endocrine Surgery: No Eye Surgery: No Genitourinary Surgery: Yes (BLADDER SUSPENSION, LOLA. RENAL STENTS) Gynecologic Surgery: Yes (HYSTERECTOMY) Hysterectomy: Yes Insulin Pump: No Joint Replacement: Yes Mastectomy: No Neurologic Surgery: No Oral Surgery: Yes (TONSILLECTOMY AGE 3 ) Pacemaker: No Prostatectomy: No Thoracic Surgery: No Tonsillectomy: Yes Tympanostomy Tube: No Valve Replacement: No Other Surgery: Yes (pan neuroma, laparotomy, colectomy, hemorrhoid, A-V fistula/ reversal) Social History Alcohol Use: Yes (socially ) Tobacco Use: No Substance Use: No Allergies-Medications (Allergen,Severity, Reaction): Coded Allergies: ceftriaxone (Verified Allergy, Severe, "COLITIS", 04/25/17) chicken derived (Verified Allergy, Severe, wheezes, 04/25/17) chocolate flavor (Verified Allergy, Severe, WHEEZING, 04/25/17) diatrizoate meglumine (Verified Allergy, Severe, anaphylactic, 04/25/17) egg (Verified Allergy, Severe, RASH, 04/25/17) erythromycin base (Verified Allergy, Severe, ABDOMINAL PAIN, 04/25/17) gadobenic acid (Verified Allergy, Severe, anaphylactic, 04/25/17) gadodiamide (Verified Allergy, Severe, anaphylactic, 04/25/17) gadoteridol (Verified Allergy, Severe, anaphylactic, 04/25/17) hazelnut (Verified Allergy, Severe, nausea and vomiting All Nuts, 04/25/17) iodine (Verified Allergy, Severe, BLISTERS, 04/25/17) iodixanol (Verified Allergy, Severe, anaphylactic, 04/25/17) iohexol (Verified Allergy, Severe, anaphylactic, 04/25/17) mold (Verified Allergy, Severe, Anaphylaxis, 04/25/17) morphine (Verified Allergy, Severe, RASH, 04/25/17) penicillin G (Verified Allergy, Severe, HIVES, 04/25/17) potassium iodide (Verified Allergy, Severe, BLISTERS, 04/25/17) povidone-iodine (Verified Allergy, Severe, BLISTERS, 04/25/17) shrimp (Verified Allergy, Severe, ITCHING, 04/25/17) sodium iodide (Verified Allergy, Severe, BLISTERS, 04/25/17) sodium iodide (Verified Allergy, Severe, BLISTERS, 04/25/17) temazepam (Verified Allergy, Severe, Confusion, 04/25/17) bupropion (Verified Allergy, Intermediate, Itching, 04/25/17) cilostazol (Verified Allergy, Mild, 04/25/17) ABDOMINAL PAIN AND ITCHING ragweed pollen (Verified Allergy, Unknown, RESPIRATORY DIFFICULTIES, ) dronedarone (Verified Adverse Reaction, Severe, Nausea/Vomiting, 04/25/17) meperidine (Verified Adverse Reaction, Severe, VOMITTING, 04/25/17) molasses (Verified Adverse Reaction, Severe, HEADACHE, 04/25/17) monosodium glutamate (Verified Adverse Reaction, Severe, HEADACHE, 04/25/17 ) celecoxib (Verified Adverse Reaction, Unknown, avoid due to renal failure , 04/25/17) ibuprofen (Verified Adverse Reaction, Unknown, avoid due to renal failure , 04/25/17) Uncoded Allergies: INTRATHECAL MORPHINE (Allergy, Unknown, Itching AND RASH, 03/13/16) Reported Meds & Prescriptions Reported Meds & Active Scripts Active Reported Hydrocodon-Acetamin 7.5-325/15 (Hydrocodone/Acetaminophen) 7.5 Mg-325 Mg/15 Ml ( 15 Ml) Solution 1 Tab PO Q4HR Procrit Inj (Epoetin Kenny) 10,000 Unit/Ml Inj 10,000 Units SQ EVERY 2 WEEKS Warfarin 3 Mg Tab 3 Mg PO M,W,F,S,SUN Welchol (Colesevelam HCl) 625 Mg Tab 1,875 Mg PO BID Levsin-SL (Hyoscyamine Sulfate) 0.125 Mg Subl 0.125 Mg SL Q4H PRN Tylenol (Acetaminophen) 325 Mg Tab 325 Mg PO Q6H PRN Lomotil (Diphenoxylate-Atropine) 2.5-0.025 Mg Tab 1 Tab PO Q6H PRN Zofran (Ondansetron HCl) 8 Mg Tab 8 Mg PO TID PRN Bentyl (Dicyclomine HCl) 10 Mg Cap 10 Mg PO QID Multi Vitamin Daily (Multiple Vitamin) 1 Tab Tab 1 Tab PO DAILY Epipen (Epinephrine) 0.3 Mg/0.3 Ml Auto.injct 0.3 Mg IM PRN Nitrostat SL (Nitroglycerin) 0.4 Mg Subl 0.4 Mg SL DIRECTED PRN 1 tablet under the tongue as needed for chest pain. Repeat every 5 minutes for a total of 3 DOSES or call 911 if NO relief. Ventolin Hfa 18 GM Inh (Albuterol Sulfate) 90 Mcg/Act Aer 1 Puff INH Q4H PRN Benadryl Allergy (Diphenhydramine HCl) 25 Mg Cap 50 Mg PO HS Famotidine 40 Mg Tab 40 Mg PO BID Vitamin D3 (Cholecalciferol) 50,000 Unit Cap 50,000 Units PO [id number] Amitriptyline (Amitriptyline HCl) 25 Mg Tab 25 Mg PO HS Furosemide 40 Mg Tab 40 Mg PO DAILY Warfarin 1 Mg Tab 1.5 Mg PO SUNDAY AND SUNDAY Levothyroxine (Levothyroxine Sodium) 175 Mcg Tab 175 Mcg PO DAILY Minipress (Prazosin HCl) 2 Mg Cap 2-5 Mg PO DIRECTED AM & PM Amiodarone (Amiodarone HCl) 200 Mg Tab 100 Mg PO HS Premarin (Estrogens Conjugated) 1.25 Mg Tab 1.25 Mg PO HS Avapro (Irbesartan) 150 Mg Tab 150 Mg PO HS Review of Systems Except as stated in HPI: all other systems reviewed are Neg Physical Exam Narrative GENERAL: Well-nourished, well-developed white female in no acute distress. SKIN: Warm and dry. Patient has large skin tears of the left forearm and hand. Ecchymosis of the right hand. Thorough evaluation reveals no edema, abrasion , or laceration of the skin. HEAD: Normocephalic. Atraumatic. No raccoon eyes or temple sign. No tenderness to palpation of the skull. No bony step-offs. No malocclusion of the teeth. EYES: No scleral icterus. No injection or drainage. PERRLA. EOMI. ENT: Pearly ramirez tympanic membrane is bilaterally. Nasal mucosa is moist. Oropharynx without erythema, edema or exudate. NECK: Supple, trachea midline. No JVD or lymphadenopathy. No midline tenderness to palpation. Patient retains full, active, painless range of motion of the neck. CARDIOVASCULAR: Regular rate and rhythm without murmurs, gallops, or rubs. 2+ DP and radial pulses bilaterally. RESPIRATORY: Breath sounds clear and equal bilaterally. No accessory muscle use. GASTROINTESTINAL: Abdomen soft, non-tender, nondistended. + Bowel sounds MUSCULOSKELETAL: No cyanosis, or edema. Tender to palpation of the fifth metacarpal of the left hand. No limitation to range of motion. No other tenderness to palpation or limitations to range of motion of the joints of the upper and lower extremities bilaterally. NEUROLOGICAL: Awake and alert. Cranial nerves II through XII intact. Motor and sensory grossly within normal limits. 5/5 muscle strength in all muscle groups. Normal speech. BACK: Nontender without obvious deformity. No CVA tenderness. No midline tenderness. Data Data Last Documented VS Vital Signs Date Time Temp Pulse Resp B/P (MAP) Pulse Ox O2 Delivery O2 Flow Rate FiO2 05/07/17 18:31 97.8 85 16 188/75 (112) 97 Orders Orders Lidocaine 2% Jelly (Xylocaine 2% Jelly) (05/07/17 20:45) Hand, Complete ([id number]) (05/07/17 20:36) Ice/Cold Pack (05/07/17 20:36) Ed Discharge Order (05/07/17 21:18) [facility] Medical Decision Making Medical Screen Exam Complete: Yes Emergency Medical Condition: Yes Differential Diagnosis Skin tear versus laceration versus contusion versus fracture versus dislocation versus other Narrative Course 76-year-old female presents to the ED for evaluation of skin tears to left arm after fall at home. Patient states that she lost her balance while she was putting away teacups and fell to the tile floor. She denies hitting her head or loss of consciousness. On presentation she complains of bleeding from the left arm. She denies headache, dizziness, joint pain, nausea, vomiting. Has been ambulatory since the accident. She is on on Coumadin. Tetanus immunization is up-to-date. Vitals reviewed. Physical exam reveals several skin tears of the left forearm and tenderness to palpation of the fifth metacarpal of the left hand but is otherwise unremarkable. The patient's daughter is at bedside request that she be able to dress the patient's wound. Saline, Steri-Strips, Q-tips, Telfa and Jorden were brought to the bedside. I evaluated the wound before the dressings were applied. Skin tears were reapproximated where possible and antibiotic ointment was applied elsewhere. X- ray of the hand is unremarkable. This is skin tear contusion the left hand after fall from standing. Patient is encouraged to keep the wounds clean, dry and covered, monitor for signs of infection, ice the extremity as needed, follow up with the primary care provider. A shoulder and her daughter are agreeable to this care plan. The patient is stable and discharged home. Diagnosis Primary Impression: Skin tear of left upper arm without complication Qualified Codes: S41.112A - Laceration without foreign body of left upper arm , initial encounter Additional Impressions: Contusion of left hand, initial encounter Fall from standing Qualified Codes: W19.XXXA - Unspecified fall, initial encounter Referrals: Primary Care Physician Patient Instructions: Contusion in Adults (ED), General Instructions, Skin Tear (ED) Additional Instructions: Rest, hydrate. Resume normal, gentle activities as tolerated. Keep your wound clean, dry and covered. Monitor for signs of infection as discussed. Ice packs applied to the hand may help to improve your pain symptoms. Follow-up with primary care provider. Return to the ED for any urgent or emergent medical condition. Disposition: 01 DISCHARGE HOME Condition: Stable Joselin Love May 07, 2017 21:02
--- NOTE | 2017-05-07 21:51 | RADRPT ---
EXAM DATE/TIME: 05/07/2017 20:52 [facility] COMPARISON: No previous studies available for comparison. INDICATIONS : Laceration to left 5th metacarpal after falling this evening. MEDICAL HISTORY : None. SURGICAL HISTORY : None. ENCOUNTER: Initial ACUITY: 1 day PAIN SCORE: 5/10 LOCATION: Left hand. FINDINGS: Bone density is mildly decreased. The osseous structures are in normal alignment. No osseous injury of the 5th metacarpal bone. 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 No evidence of subluxation. Moderate degenerative changes in the articulation between the scaphoid and distal carpal row. CONCLUSION: 1. No evidence of recent bony injury. 2. Moderate severity arthropathy of the DIP joints and scaphoid trapezium. Priyank Krishnan MD on May 07, 2017 at 21:48 Board Certified Radiologist. This report was verified electronically.
== END 2017-05-07 21:29 | disposition home or self-care (01) ==
LOC: PHED 18:07 → PHEFT 21:29
DX: S41.112A Laceration without foreign body of left upper arm, initial encounter (principal); S60.222A Contusion of left hand, initial encounter; Y93.G1 Activity, food preparation and clean up; I48.91 Unspecified atrial fibrillation; J44.9 Chronic obstructive pulmonary disease, unspecified; I10 Essential (primary) hypertension; Y92.000 Kitchen of unspecified non-institutional (private) residence as the place of occurrence of the external cause; I50.9 Heart failure, unspecified; W01.0XXA Fall on same level from slipping, tripping and stumbling without subsequent striking against object, initial encounter; Z79.01 Long term (current) use of anticoagulants
CPT/HCPCS: 73130; 99283

== ENCOUNTER 2017-07-18 09:43 | Emergency (ER) | payer MEDICARE, BC ==
[~2017-07-18] VITALS: Ht 165.1 cm; Wt 73.0 kg
[~2017-07-18 09:43] MED LIST changes: -AMIT25TA9 PO; -DICY10 PO; +FAMO1TAB73 PO; -FAMO40TA PO; -HYDR-3534 PO; +HYDR1SOL6 PO; -LEVO-154 PO; +LEVO.2 PO; -LEVS0.124 SL; +SALM50I INH; +TUSSSUS2 PO; +VITA500012 PO; -ZOFR8TAB PO
[2017-07-18 09:48] VITALS: BP 111/58; PULSE 93; RESP 18; TEMP 97.6; O2SAT 98
[2017-07-18] MEDS ORDERED: CEPHALEXIN MONOHYDRATE 500 MG CAP PO ONE (10:30)
[2017-07-18] MEDS ORDERED: predniSONE 20 MG TAB PO ONE (10:30)
[2017-07-18] MEDS ORDERED: PRED20 PO (10:32)
[2017-07-18] MEDS ORDERED: CEPH-460 PO (10:32)
--- NOTE | 2017-07-18 10:37 | PD ---
HPI Chief Complaint: Skin Problem Time Seen by Provider: 10:09 Travel History International Travel<30 days: No Contact w/Intl Traveler<30days: No Traveled to known affect area: No History of Present Illness HPI 76-year-old female with history of gout presents to the emergency room with her daughter for evaluation of left second finger pain and swelling that started yesterday. Patient states she checked her INR to the left distal finger 2 days ago. Upon waking yesterday, she noticed her finger was swollen and painful. She gave it a day to see if it would improve but upon waking this morning, the symptoms had worsened. Patient localizes pain to the PIP joint of the left second finger. Worse with range of motion and when she pushes on it. It is now beginning to radiate into her hand. She denies paresthesias. No fevers. 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,BILAT HANDS)) Cardiac Catheterization: No Cardiovascular Problems: Yes High Cholesterol: Yes Chemotherapy: No Chest Pain: Yes Congestive Heart Failure: Yes COPD: Yes Cerebrovascular Accident: No Diabetes: No Diminished Hearing: Yes Deep Vein Thrombosis: Yes (PE) Endocrine: No Gastrointestinal Disorders: Yes (COLECTOMY; ISCHEMIC COLITIS;) GERD: Yes Glaucoma: No Genitourinary: No Hepatitis: No Hiatal Hernia: Yes Heparin Induced Thrombocytopen: No Hypertension: Yes Immune Disorder: No Implanted Vascular Access Dvce: Yes Kidney Stones: Yes Musculoskeletal: Yes (OSTENPENIA LEFT HIP ) Neurologic: No Psychiatric: Yes (SITUATIONAL DEPRESSION ) Reproductive: Yes Respiratory: No Immunizations Current: Yes Migraines: Yes ("NOT FOR FEW YEARS" (08/06/13)) Myocardial Infarction: No Pneumonia: Yes Radiation Therapy: No Renal Failure: Yes (Chronic renal failure - pt not on dialysis ) Sickle Cell Disease: No Sleep Apnea: No Thyroid Disease: Yes Ulcer: No PNEUMOCCOCAL Vaccine (Year): 2010 Menopausal: Yes : 8 Para: 3 Miscarriage: 5 : 0 Ovarian Cysts: Yes Past Surgical History Abdominal Aneurysm Repair: No Abdominal Surgery: Yes (GALL BLADDER, APPENDIX, COLECTOMY) AICD: No Appendectomy: Yes Arteriovenous Shunt: No Body Medical Devices: BILATERAL RENTAL ARTERY STENTS Cardiac Surgery: No Cholecystectomy: Yes Coronary Artery Bypass Graft: No Coronary Stent: No Ear Surgery: No Endocrine Surgery: No Eye Surgery: No Genitourinary Surgery: Yes (BLADDER SUSPENSION, LOLA. RENAL STENTS) Gynecologic Surgery: Yes (HYSTERECTOMY) Hysterectomy: Yes Insulin Pump: No Joint Replacement: Yes Mastectomy: No Neurologic Surgery: No Oral Surgery: Yes (TONSILLECTOMY AGE 3 ) Pacemaker: No Prostatectomy: No Thoracic Surgery: No Tonsillectomy: Yes Tympanostomy Tube: No Valve Replacement: No Other Surgery: Yes (pan neuroma, laparotomy, colectomy, hemorrhoid, A-V fistula/ reversal) Social History Alcohol Use: Yes (socially ) Tobacco Use: No Substance Use: No Allergies-Medications (Allergen,Severity, Reaction): Coded Allergies: ceftriaxone (Verified Allergy, Severe, "COLITIS", 07/18/17) chicken derived (Verified Allergy, Severe, wheezes, 07/18/17) chocolate flavor (Verified Allergy, Severe, WHEEZING, 07/18/17) diatrizoate meglumine (Verified Allergy, Severe, anaphylactic, 07/18/17) egg (Verified Allergy, Severe, RASH, 07/18/17) erythromycin base (Verified Allergy, Severe, ABDOMINAL PAIN, 07/18/17) gadobenic acid (Verified Allergy, Severe, anaphylactic, 07/18/17) gadodiamide (Verified Allergy, Severe, anaphylactic, 07/18/17) gadoteridol (Verified Allergy, Severe, anaphylactic, 07/18/17) hazelnut (Verified Allergy, Severe, nausea and vomiting All Nuts, 07/18/17) iodine (Verified Allergy, Severe, BLISTERS, 07/18/17) iodixanol (Verified Allergy, Severe, anaphylactic, 07/18/17) iohexol (Verified Allergy, Severe, anaphylactic, 07/18/17) mold (Verified Allergy, Severe, Anaphylaxis, 07/18/17) morphine (Verified Allergy, Severe, RASH, 07/18/17) penicillin G (Verified Allergy, Severe, HIVES, 07/18/17) potassium iodide (Verified Allergy, Severe, BLISTERS, 07/18/17) povidone-iodine (Verified Allergy, Severe, BLISTERS, 07/18/17) shrimp (Verified Allergy, Severe, ITCHING, 07/18/17) sodium iodide (Verified Allergy, Severe, BLISTERS, 07/18/17) sodium iodide (Verified Allergy, Severe, BLISTERS, 07/18/17) temazepam (Verified Allergy, Severe, Confusion, 07/18/17) bupropion (Verified Allergy, Intermediate, Itching, 07/18/17) cilostazol (Verified Allergy, Mild, 07/18/17) ABDOMINAL PAIN AND ITCHING ragweed pollen (Verified Allergy, Unknown, RESPIRATORY DIFFICULTIES, ) dronedarone (Verified Adverse Reaction, Severe, Nausea/Vomiting, 07/18/17) meperidine (Verified Adverse Reaction, Severe, VOMITTING, 07/18/17) molasses (Verified Adverse Reaction, Severe, HEADACHE, 07/18/17) monosodium glutamate (Verified Adverse Reaction, Severe, HEADACHE, 07/18/17 ) celecoxib (Verified Adverse Reaction, Unknown, avoid due to renal failure , 07/18/17) ibuprofen (Verified Adverse Reaction, Unknown, avoid due to renal failure , 07/18/17) Uncoded Allergies: INTRATHECAL MORPHINE (Allergy, Unknown, Itching AND RASH, 03/13/16) Reported Meds & Prescriptions Reported Meds & Active Scripts Active Prednisone 20 Mg Tab 40 Mg PO DAILY Take 40 mg (2 tablets) daily for 5 days Keflex (Cephalexin) 500 Mg Capsule 500 Mg PO Q6H 7 Days Reported Serevent Diskus Inh (Salmeterol Xinafoate) 50 Mcg/Act Aero 50 Mcg INH PRN Pepcid (Famotidine) 40 Mg Tab 40 Mg PO BID PRN Ergocalciferol 50,000 Unit Cap 50,000 Units PO Q14D Synthroid (Levothyroxine Sodium) 200 Mcg Tab 200 Mcg PO DAILY Hydrocodon-Acetamin 7.5-325/15 (Hydrocodone/Acetaminophen) 7.5 Mg-325 Mg/15 Ml ( 15 Ml) Solution 1 Tab PO Q4HR Procrit Inj (Epoetin Kenny) 10,000 Unit/Ml Inj 10,000 Units SQ EVERY 2 WEEKS Warfarin 3 Mg Tab 3 Mg PO M,W,F,S,SUN Welchol (Colesevelam HCl) 625 Mg Tab 1,875 Mg PO BID Tylenol (Acetaminophen) 325 Mg Tab 325 Mg PO Q6H PRN Lomotil (Diphenoxylate-Atropine) 2.5-0.025 Mg Tab 1 Tab PO Q6H PRN Multi Vitamin Daily (Multiple Vitamin) 1 Tab Tab 1 Tab PO DAILY Epipen (Epinephrine) 0.3 Mg/0.3 Ml Auto.injct 0.3 Mg IM PRN Nitrostat SL (Nitroglycerin) 0.4 Mg Subl 0.4 Mg SL DIRECTED PRN 1 tablet under the tongue as needed for chest pain. Repeat every 5 minutes for a total of 3 DOSES or call 911 if NO relief. Ventolin Hfa 18 GM Inh (Albuterol Sulfate) 90 Mcg/Act Aer 1 Puff INH Q4H PRN Benadryl Allergy (Diphenhydramine HCl) 25 Mg Cap 50 Mg PO HS Vitamin D3 (Cholecalciferol) 50,000 Unit Cap 50,000 Units PO [id number] Furosemide 40 Mg Tab 40 Mg PO DAILY Warfarin 1 Mg Tab 1.5 Mg PO SUNDAY AND SUNDAY Minipress (Prazosin HCl) 2 Mg Cap 2-5 Mg PO DIRECTED AM & PM Amiodarone (Amiodarone HCl) 200 Mg Tab 100 Mg PO HS Premarin (Estrogens Conjugated) 1.25 Mg Tab 1.25 Mg PO HS Avapro (Irbesartan) 150 Mg Tab 150 Mg PO HS Review of Systems Except as stated in HPI: all other systems reviewed are Neg Physical Exam Narrative GENERAL: Well-nourished, well-developed female no acute distress. Afebrile. Ambulatory. SKIN: Focused skin assessment warm/dry. HEAD: Normocephalic. EYES: No scleral icterus. No injection or drainage. NECK: Supple, trachea midline. No JVD or lymphadenopathy. CARDIOVASCULAR: Regular rate and rhythm without murmurs, gallops, or rubs. RESPIRATORY: Breath sounds equal bilaterally. No accessory muscle use. MUSCULOSKELETAL: No cyanosis. Moderate edema of the left second finger extending into the left MCP joint. Tenderness to palpation especially over the PIP joint. Less than 2 second capillary refill distally. Distal sensation intact. Limited range of motion secondary to pain. No significant tenderness along the tendon sheath. Mild pain with full extension of the finger. Data Data Last Documented VS Vital Signs Date Time Temp Pulse Resp B/P (MAP) Pulse Ox O2 Delivery O2 Flow Rate FiO2 07/18/17 09:48 97.6 93 18 111/58 (75) 98 Orders Orders Cephalexin (Keflex) (07/18/17 10:30) Prednisone (Deltasone) (07/18/17 10:30) [facility] Medical Decision Making Medical Screen Exam Complete: Yes Emergency Medical Condition: Yes Medical Record Reviewed: Yes Differential Diagnosis Gout, inflammatory arthritis, flexor tenosynovitis unlikely Narrative Course 76-year-old female presents to the emergency room for evaluation of left second finger pain and swelling that started yesterday and worsened today. She denies trauma or injury. States she took her INR on the same finger the day prior to symptoms starting. She denies any fevers. Patient is afebrile well-appearing in the emergency room. Vital signs stable. Physical exam reveals moderate edema of the left second finger extending into the MCP joint. There is tenderness to palpation especially over the PIP joint. Worse with range of motion and palpation. Patient has no real tenderness along the tendon sheath and swelling does not appear to be fusiform. She can extend the finger without significant pain. I had my attending physician, Dr. Plasencia, evaluate the patient and he agrees it is likely inflammatory arthritis. Patient will be covered for infection Keflex and inflammatory arthritis with prednisone. Told to follow-up with the primary care physician or return for worsening symptoms. She understands and agrees to plan. Diagnosis Primary Impression: Inflammatory arthritis Referrals: Primary Care Physician Additional Instructions: Rest and drink plenty of fluids. Take prednisone and Keflex as directed, until gone. Apply ice to the affected area for 20 minutes at a time, as needed for pain and swelling. Follow-up with a primary care physician. Return to the emergency room for worsening symptoms, especially fever or significantly worsening symptoms over the next 2 days. Med/Other Pt SpecificInfo: Prescription(s) given Scripts Prednisone (Prednisone) 20 Mg Tab 40 MG PO DAILY, #8 TAB 0 Refills Take 40 mg (2 tablets) daily for 5 days Prov: Ashia Phoenix MD 07/18/17 Cephalexin (Keflex) 500 Mg Capsule 500 MG PO Q6H for Infection for 7 Days, #28 CAP 0 Refills Prov: Ashia Phoenix MD 07/18/17 Disposition: 01 DISCHARGE HOME Condition: Stable Tabitha Cabrera Jul 18, 2017 10:37
== END 2017-07-18 10:48 | disposition home or self-care (01) ==
LOC: PHED 09:43
DX: M13.842 Other specified arthritis, left hand (principal); M10.9 Gout, unspecified; I48.91 Unspecified atrial fibrillation; J44.9 Chronic obstructive pulmonary disease, unspecified; I10 Essential (primary) hypertension; Z79.01 Long term (current) use of anticoagulants
CPT/HCPCS: 99283; J7512

== ENCOUNTER → 2017-07-24 | Outpatient (CLI) | payer MEDICARE, BC ==
[~2017-07-24] MED LIST changes: +CEPH-460 PO; +PRED20 PO; -TUSSSUS2 PO
[2017-07-24 18:23] LABS: ALBUMIN 2.9 GM/DL (3.4-5.0); BICARBONATE 28.6 MEQ/L (21.0-32.0); CALCIUM 6.6 MG/DL (8.5-10.1); CREATININE 2.32 MG/DL (0.50-1.00)
[2017-07-24 18:34] LABS: FREE T4 1.82 NG/DL (0.76-1.46); TOTAL BILIRUBIN ADULT 0.3 MG/DL (0.2-1.0); TOTAL PROTEIN 6.5 GM/DL (6.4-8.2)
[2017-07-24 18:57] LABS: CALCIUM-PROTEIN CORRECTED 6.9 MG/DL (8.5-10.1)
== END ==
LOC: PLAB 11:24
PROVIDERS: ATTEND Internal Medicine Endocrinology, Diabetes & Metabolism
DX: E03.9 Hypothyroidism, unspecified (principal); E55.9 Vitamin D deficiency, unspecified
CPT/HCPCS: 36415; 80053; 82306; 84439; 84443

== ENCOUNTER → 2017-10-25 | Day surgery (SDC) | payer MEDICARE, BC ==
[~2017-10-25] MED LIST changes: +AMIT25TA9 PO; +BUPIVACAINE HCL PF 0.5% 30 ML VIAL ONE; +CALC0.25 PO; +DICY10 PO; +FURO80TA PO; +HYDR-3516 PO; +LEVS0.123 PO; +LUTE20CA PO; +MECL-62 PO; +ONDA8TAB7 PO; +PROPOFOL 200 MG/20 ML AMP IV ONE; +TRIAMCINOLONE ACETONIDE 40 MG/ML VIAL I-ARTICULR ONE; +TUSSSUS2 PO; +VITA10002 PO; +methylPREDNISolone ACETATE 40 MG/ML VIAL I-ARTICULR ONE
--- NOTE | 2017-10-25 10:11 | M6 ---
cc: Sabiha Ernandez MD DATE: 10/25/2017 DATE OF : 1940. PROCEDURE: Fluoroscopic-guided injection right hip joint. History and physical was completed and signed. Consent was signed. Procedure site was marked. Medications were listed and reconciled. Pain score was recorded. Allergies were noted. Time out was taken. Fluoroscopy time was recorded where applicable. Sedation was administered or directed by Dr. Ernandez. The patient was given oxygen. The patient was monitored by a registered nurse. Total procedure time was greater than 15 minutes. PROCEDURE NOTE: IV was started. Blood pressure cuff, pulse oximeter and EKG were applied. The patient was placed in the supine position on a Chris table, sedated with small amounts of propofol titrated to effect. Vital signs were monitored and remained stable throughout the procedure. The right hip area was prepped with alcohol and draped with sterile drapes. Fluoroscopy was used to visualize the right acetabulum. A 3-1/2 inch, 22-gauge spinal needle was advanced into the cephalad portion of the acetabulum under fluoroscopic guidance. There was negative aspiration for blood or any other type of fluid and the patient was given 3 mL of 0.5% Marcaine, 20 mg of Depo-Medrol, 20 mg of Kenalog. Following the procedure, the patient was taken to the recovery room with stable vital signs and neurologically intact. She will be evaluated immediately and with followup to determine if she has a subjective decrease in her usual pain and a corresponding objective increase in her functional capabilities. MD MARIN Nieves/RENALDO , 10:02 AM , 10:10 AM
== END | disposition home or self-care (01) ==
LOC: PHSDC 09:02
PROVIDERS: ATTEND Pain Medicine Interventional Pain Medicine
DX: M25.551 Pain in right hip (principal)
CPT/HCPCS: 20610; 99152; J1030; J3301